=== PATIENT | female | born 1985 | race American Indian/Alaskan Native ===

== ENCOUNTER 2025-06-08 08:54 | Emergency (ER) | payer OTHER, SELFPAY ==
[2025-06-08 09:11] VITALS: BP 142/87; PULSE 75; RESP 17; TEMP 37.1; O2SAT 97
--- NOTE | 2025-06-08 09:18 | EDNOTE_ITS ---
ED Eye Problem RME/HPI General Chief complaint: Eye Problems Stated complaint: SCRATCH TO LEFT EYE Time Seen by Provider: 06/08/25 09:13 Arrival date/time: 06/08/25 08:54 39-year-old female presents to the emergency department of complaints of a student scratching her left eye patient reports no disturbances of vision patient reports this happened at work and is Workmen's Compensation case Limitations: no limitations Related Data Previous Rx's ?Medication ?Instructions ?Recorded alprazolam 0.25 mg tablet (Xanax) 0.25 mg PO QDAY PRN anxiety #10 03/14/24 tabs pantoprazole 40 mg tablet,delayed 40 mg PO QDAY #30 ta bs 03/23/24 release (Protonix) Allergies Allergy/AdvReac Type Severity Reaction Status Date / Time orange Allergy Unknown Verified 06/08/25 08:55 Review of Systems Review of Systems Systems Reviewed: All systems reviewed, normal except as documented Constitutional Constitutional: Reports system reviewed and no additional complaints, except as documented, Denies fever(s) and Denies headache(s) Eyes Eyes: Reports system reviewed and no additional complaints, except as documented, Denies blurry vision and Reports other (Right eye injury) ENT Ears, Nose, Mouth, and Throat: Reports system reviewed and no additional complaints, except as documented, Denies headache(s), Denies nasal congestion and Denies nasal discharge Cardiovascular Cardiovascular: Reports system reviewed and no additional complaints, except as documented, Denies chest pain and Denies dyspnea Respiratory Respiratory: Reports system reviewed and no additional complaints, except as documented, Denies chest congestion, Denies cough and Denies dyspnea Gastrointestinal Gastrointestinal: Reports system reviewed and no additional complaints, except as documented and Denies abdominal pain Integumentary/Breasts Skin/Breast: Reports system reviewed and no additional complaints, except as documented and Denies rash Neurologic Neurologic: Reports system reviewed and no additional complaints, except as documented, Reports as per HPI and Denies headache(s) Past Medical History Past Medical History CARDIAC: Negative Congestive Heart Failure RESPIRATORY: Negative Chronic Obstructive Pulmonary Disease (COPD) GENITOURINARY: Negative Renal Disease ENDOCRINE: Negative Diabetes Mellitus Type 1 or Diabetes Mellitus Type 2 PSYCHO/SOCIAL: Positive Anxiety Social History SMOKING STATUS: Never smoker ED Exam General Limitations: Present no limitations General appearance: Present alert and in no apparent distress Head Head exam: Present atraumatic Eye Eye exam: Present PERRL and EOMI; Absent conjunctival injection, periorbital swelling or periorbital tenderness ENT ENT exam: Present normal exam, normal oropharynx and mucous membranes moist Neck Neck exam: Present normal inspection, full ROM and trachea midline Chest Chest inspection: Present normal inspection and symmetric chest wall rise Respiratory Respiratory exam: Present normal lung sounds bilaterally Cardiovascular Cardiovascular exam: Present regular rate, normal rhythm and normal heart sounds Abdominal Exam Abdominal exam: Present soft and normal bowel sounds Extremities Exam Extremities exam: Present normal inspection and full ROM Back Exam Back exam: Present normal inspection and full ROM Neurological Exam Neurological exam: Present alert, oriented X3 and CN II-XII intact Psychiatric Psychiatric exam: Present normal affect and normal mood Skin Skin exam: Present warm, dry, intact and normal color Course Quality Measures none Vital Signs Vital signs: Vital Signs Temperature 98.7 F 06/08/25 09:11 Pulse Rate 75 06/08/25 09:11 Respiratory Rate 17 06/08/25 09:11 Blood Pressure 142/87 H 06/08/25 09:11 Pulse Oximetry (%) 97 06/08/25 09:11 Oxygen Delivery Method Room Air 06/08/25 09:11 O2 saturation 97% room air within normal limits Eye MDM Narrative MDM Narrative:: 39-year-old female presents to the emergency department of complaints of a student scratching her left eye patient reports no disturbances of vision patient reports this happened at work and is Workmen's Compensation case On exam patient well-appearing patient does not appear ill or toxic no acute distress Did offer to fluorescein stain patient declined On external exam appears to be normal no redness no swelling no disturbances of vision Patient will be treated course of antibiotics instructed follow-up with Workmen's Compensation doctor for worsening symptoms return immediately Patient data External records reviewed:: [facility] previous records Clinical information provided by:: patient Social determinants that could affect healthcare access:: none Patient has the following chronic illnesses:: None How is presenting disease/condition affected by chronic disease/condition?: no chronic disease Evaluation data The following diagnostics were reviewed and interpreted by me:: other (specify) (N/A) Lab and/or radiology exams considered but not ordered:: Considered not ordered Interpretation Summary: N/A Medications / Prescriptions Medications or Prescriptions considered but not ordered:: N/A Medication administrations:: Rx given Consultations Consultation(s) initiated? (list below): No Diagnosis Eye Problem Differential Diagnosis: corneal abrasion and corneal ulcer Most likely diagnosis given after review of the tests above:: Corneal abrasion Admission Indicated Admission indicated?: not indicated Admission Request Was there a request for admission?: No Disposition Plan Disposition Plan: Discharge Discharge Attestation Discharge Attestation: The patient and all family members were given an opportunity to ask questions and understood the discharge instructions. Discharge instructions specifically effects, indications for sooner follow up or return to the emergency department, and the expected course of current diagnosis. Patient condition: Stable Discharge Plan Plan Patient Disposition: HOME (Self Care) Discharge Disposition comment: Stable Prescriptions/Referrals Prescriptions/Med Rec: No Action alprazolam [Xanax] 0.25 mg tablet 0.25 mg PO QDAY PRN (Reason: anxiety) Qty: 10 0RF pantoprazole [Protonix] 40 mg tablet,delayed release (DR/EC) 40 mg PO QDAY Qty: 30 0RF Problem List Clinical Impression: Corneal abrasion Patient/Caregiver Discharge Instructions Education Materials: Corneal Injury Additional Instructions: Please follow-up Workmen's Comp. doctor as discussed for symptoms return immediately Print Language: Greenlandic Stand Alone Forms: Jess Award Info., Patient Portal Info Letter PA/OIL HEAT TECHNICIAN Supervising Physician PA/NADIA Supervising Physician: dr [email or web address]
== END 2025-06-08 10:10 | disposition home or self-care (01) ==
LOC: SERX 09:58
PROVIDERS: Emergency Provider Nurse Practitioner Primary Care
DX: S05.02XA Injury of conjunctiva and corneal abrasion without foreign body, left eye, initial encounter (principal); Y04.2XXA Assault by strike against or bumped into by another person, initial encounter; Y92.219 Unspecified school as the place of occurrence of the external cause; Y99.0 Civilian activity done for income or pay
CPT/HCPCS: 99281